=== PATIENT | female | born 1995 | race Hispanic/Latino ===

== ENCOUNTER 2016-05-02 22:22 | Emergency (ER) | payer OTHER ==
[2016-05-02] MEDS ORDERED: ONDANSETRON ODT 4 MG TAB ONE (23:10)
[2016-05-02] MEDS ORDERED: Ibuprofen 400 MG TAB ONE (23:10)
== END 2016-05-03 00:06 | disposition home or self-care (01) ==
LOC: FASTR 22:22
DX: B34.9 Viral infection, unspecified (principal)
CPT/HCPCS: 71020; 81003; 87804; 87880